=== PATIENT | male | born 1970 | race Caucasian/White ===

== ENCOUNTER → 2016-10-02 | Outpatient (CLI) | payer OTHER ==
[~2016-10-02] MED LIST: BUPRTAB51 PO; DIAZ-165 PO; GLCPUNK PO; INSDGI SC; LISI-461 PO; PREG100C PO; QUET200T2 PO; REPA2TAB13 PO; VENL100T2 PO; ZCRUNK PO; [UNRECOGNIZED DRUG - OTHER] INJ
== END | disposition home or self-care (01) ==
LOC: C.PAIN 11:06
PROVIDERS: ATTEND Anesthesiology
DX: M96.1 Postlaminectomy syndrome, not elsewhere classified (principal); M54.16 Radiculopathy, lumbar region; G89.28 Other chronic postprocedural pain; E11.40 Type 2 diabetes mellitus with diabetic neuropathy, unspecified; F41.9 Anxiety disorder, unspecified; F32.9 Major depressive disorder, single episode, unspecified; Z79.4 Long term (current) use of insulin; Z79.84 Long term (current) use of oral hypoglycemic drugs